=== PATIENT | male | born 1970 | race Caucasian/White ===

== ENCOUNTER 2019-11-28 10:51 | Outpatient (REF) | payer OTHER, SELFPAY ==
[2019-11-28 22:19] LABS: Anion Gap 8.6 mmol/L (3-11); BUN 13 mg/dL (7-18); CO2 29.4 mmol/L (21.0-32.0); CREATININE 1.03 mg/dL (0.70-1.30); Calcium 9.3 mg/dL (8.5-10.1); Calculated LDL 136 mg/dL (<100); Chloride 102 mmol/L (98-107); Cholesterol 198 mg/dL (<200); Glucose 86 mg/dL (74-106); HDL Cholesterol 40 mg/dL (40-60); Potassium 4.2 mmol/L (3.5-5.1); Sodium 140 mmol/L (136-145); Triglyceride 112 mg/dL (<150)
[2019-11-28 22:30] LABS: Vitamin D 25 Total 66.7 ng/ml (30-100)
== END 2019-11-28 11:11 ==
LOC: NCHCN 10:51
PROVIDERS: PCP Nurse Practitioner Family; Visit Provider Family Medicine
DX: Z00.00 Encounter for general adult medical examination without abnormal findings (principal); E55.9 Vitamin D deficiency, unspecified
CPT/HCPCS: 80048; 80061; 82306

== ENCOUNTER 2022-06-24 14:00 | Outpatient (REF) | payer BC, SELFPAY ==
--- NOTE | 2022-06-24 13:25 | SKI_PTH ---
PATIENT: Derek Tobar LOC: [facility] U#:[id number] AGE/SX: 51/M ROOM: RE06/24/[address]: LEILA Levy : 1970 BED: DIS: 06/24/2022 SPEC #: [id number] RECD: 06/27/22 12:41 STATUS: YAYO REQ #: [id number] KANDIS: 06/24/22 13:[address]: Bk Pizano DEPT: Surgical Specimen RECD BY: Trice Patrick ENTERED: 06/27/22 12:42 SP TYPE: ROLAND VILLAR DR: Beverly Smith Tissues: MUCOSA, NOS Procedures: SKIN LEVEL 4 Comments: [id number]
== END 2022-06-24 14:01 | disposition home or self-care (01) ==
LOC: LBN 14:00
PROVIDERS: PCP Nurse Practitioner Family; Visit Provider Physician Assistant
DX: D23.39 Other benign neoplasm of skin of other parts of face (principal); L98.8 Other specified disorders of the skin and subcutaneous tissue
CPT/HCPCS: 88305

== ENCOUNTER 2024-11-28 10:07 | Outpatient (REF) | payer BC, SELFPAY ==
[2024-11-28 15:34] LABS: Anion Gap 5.4 mmol/L (3-11); BUN 20 mg/dL (7-18); CO2 30.6 mmol/L (21.0-32.0); Calcium 9.3 mg/dL (8.5-10.1); Calculated LDL 149 mg/dL (<100); Chloride 102 mmol/L (98-107); Cholesterol 206 mg/dL (<200); Estimated GFR 80.27 (mL/min/1.73m2); Glucose 96 mg/dL (74-106); HDL Cholesterol 47 mg/dL (>or=40); Potassium 4.0 mmol/L (3.5-5.1); Sodium 138 mmol/L (136-145); Triglyceride 50 mg/dL (<150)
[2024-12-03 10:54] LABS: Factor V Leiden(R506Q) Mut Negative (Negative)
== END 2024-11-28 10:08 | disposition home or self-care (01) ==
LOC: NCHCN 10:07
PROVIDERS: PCP Nurse Practitioner Family; Visit Provider Family Medicine
DX: Z83.2 Family history of diseases of the blood and blood-forming organs and certain disorders involving the immune mechanism (principal); Z00.00 Encounter for general adult medical examination without abnormal findings
CPT/HCPCS: 80048; 80061; 81241